=== PATIENT | male | born 1975 | race Caucasian/White ===

== ENCOUNTER 2018-03-28 06:29 | Day surgery (SDC) | payer OTHER ==
[~2018-03-28 06:29] MED LIST: Buffered Lidocaine 1% SYRIN* 1 ML/SYRINGE INTRADERM ONE; Dexamethasone IV* 4 MG/ML 1 ML (4 MG) IV SLOW PU ONE; Famotidine IV* 10 MG/ML 2 ML (20 mg) IV ONE; Lactated Ringers 1000 ML Bag* 1,000 ML IV SCH
[2018-03-28] MEDS ORDERED: Famotidine IV* 10 MG/ML 2 ML (20 mg) ONE (06:50)
[2018-03-28] MEDS ORDERED: Buffered Lidocaine 1% SYRIN* 1 ML/SYRINGE INTRADERM ONE (06:50)
[2018-03-28] MEDS ORDERED: Dexamethasone IV* 4 MG/ML 1 ML (4 MG) ONE (06:50)
[2018-03-28] MEDS ORDERED: ceFOXitin 2 GM IVPREMIX* 2 GM/50 ML BAG ONE (06:50)
[2018-03-28] MEDS ORDERED: Ketorolac INJ* 30 MG/ML 1 ML VIAL ONE ×2 (06:50→07:52)
[2018-03-28] MEDS ORDERED: Midazolam* 1 MG/ML 5 ML VIAL (5 MG) ONE (07:51)
[2018-03-28] MEDS ORDERED: fentaNYL* 50 MCG/ML 5 ML VIAL (250 MCG VIAL) ONE (07:51)
[2018-03-28] MEDS ORDERED: Atracurium* 10 MG/ML 10 ML VIAL ONE (07:51)
[2018-03-28] MEDS ORDERED: Lidocaine 2% PF * 5 ML VIAL ONE (07:52)
[2018-03-28] MEDS ORDERED: Ondansetron INJ* 2 MG/ML VIAL ONE (07:52)
[2018-03-28] MEDS ORDERED: Propofol* 10 MG/ML 20 ML BTL ONE (07:52)
[2018-03-28] MEDS ORDERED: Bupivacaine 0.25% W/EPI* 10 ML SDV ONE (09:05)
[2018-03-28] MEDS ORDERED: fentaNYL* 50 MCG/ML 2 ML VIAL (100 MCG VIAL) ONE ×2 (09:15→09:25)
[2018-03-28] MEDS ORDERED: Glycopyrrolate IV* 0.2 MG/ML 1 ML VIAL ONE (09:17)
[2018-03-28] MEDS ORDERED: Scopolamine 1.5 mg* PATCH TRANSDERM PRN (09:36)
[2018-03-28] MEDS ORDERED: HYDROmorphone INJ1* 1 MG/ML SYRINGE IV PRN (09:36)
[2018-03-28] MEDS ORDERED: oxyCODONE/Acetamin 5/325 MG* TAB PO PRN (09:36)
[2018-03-28] MEDS ORDERED: fentaNYL* 50 MCG/ML 2 ML VIAL (100 MCG VIAL) IV PRN (09:36)
[2018-03-28] MEDS ORDERED: Ondansetron INJ* 2 MG/ML VIAL IV PRN (09:36)
[2018-03-28] MEDS ORDERED: DiMENhydriNATE IV* 50 MG/ML VIAL IV PUSH PRN (09:36)
[2018-03-28] MEDS ORDERED: Naloxone* 0.4 MG/ML 1 ML VIAL IV PRN (09:36)
--- NOTE | 2018-03-28 12:17 | OP ---
CC: Dr. Chappell; [place]; Chilo Suarez DO OPERATIVE REPORT: DATE OF OPERATION: 03/28/18 DATE OF : 79 SURGEON: Dr. Chappell BEHAVIORAL PEDIATRICIAN: None. ANESTHESIOLOGIST: Dr. Peña. ANESTHESIA: General anesthetic, local infiltration. PRE-OP DIAGNOSIS: Benign tumor of cecum. POST-OP DIAGNOSIS: Benign tumor of cecum. OPERATIVE PROCEDURE: Wedge resection of cecum. DESCRIPTION OF PROCEDURE: Patient was supine on the operative table. After adequate general anesthe tic, compression stockings, Juliocesar Hugger warmer, and intravenous antibiotics, the abdomen was prepped with antiseptic, draped in a sterile fashion. Local infiltrative anesthesia was administered. Small umbilical incision was created, blunt port cannula was placed. Insufflation was carried out with ca rbon dioxide. Additional cannulae, 5 mm left lower quadrant, left mid abdomen, and ultimately anothe r 5 mm upper midline, were placed through small stab wounds under direct vision. There were multiple adhesions in the right lower quadrant from the previous appendectomy. These were taken down using s harp dissection until the cecum and terminal ileum were mobilized and the omentum was mobilized off o f it and out of the way. The base of the cecum was lifted upward and a 60 mm govea-load EndoGIA staple r was placed across the base of the cecum just off the edge of the ileocecal valve and 2 firings were utilized to transect a piece of the bowel. This was removed in an EndoCatch bag and then brought t o a side table. The staple line was opened and the tumor was inside and appeared to be removed in it s entirety with an adequate margin. Specimen was then sent in formalin for pathologic evaluation and the operative field was reexamined. Hemostasis was good. Irrigation was carried out. Free fluid wa s suctioned out. Hemostasis again confirmed. The cannulae were removed. Pneumoperitoneum allowed to escape. The umbilical fascia was closed with 0 Vicryl, followed by 5-0 Vicryl for all the skin inci sions, followed by Steri-Strips. He tolerated the procedure well. He was awakened and brought to [facility] in good condition. COMPLICATIONS: There were no complications. DRAINS: No drains. SPECIMEN: Pathologic specimen is wedge resection of the cecum. COUNTS: Sponge and instrument counts correct. ESTIMATED BLOOD LOSS: 30 mL. [id number]/[facility] #: [id number]
[2018-03-28 12:37] VITALS: BP 117/82
== END 2018-03-28 12:45 | disposition home or self-care (01) ==
LOC: OR 06:29
PROVIDERS: ATTEND Surgery
DX: D12.0 Benign neoplasm of cecum (principal); Z87.891 Personal history of nicotine dependence
CPT/HCPCS: 88307; J0694; J1100; J1885; J2250; J2405; J2704; J3010

== ENCOUNTER 2018-07-06 07:55 | Emergency (ER) | payer OTHER ==
[2018-07-06 08:37] VITALS: BP 144/85
--- NOTE | 2018-07-06 08:50 | UC ---
Abdominal Pain Male HPI - HPI Summary HPI Summary: 43 yo male with onset of abd pain yesterday onset fairly acute fever pain worse with movement relief with defecation/urination currently on Augmentin Hx erosive esophagitis Hx diverticulitis Hx appy Hx wedge bx to remove colonic polyp - History of Current Complaint Chief Complaint: UCAbdominalPain Stated Complaint: ABDOMINAL PAIN (HX DIVERTICULITIS) Hx Obtained From: Patient Onset/Duration: Sudden Onset, Lasting Hours Timing: Constant Severity Initially: Moderate Pain Intensity: 5 - 8-9 with ambulation Pain Scale Used: 0-10 Numeric Location: Diffuse, Other - worse lower quadrients Radiates: No Character: Aching, Colicy, Cramping Aggravating Factor(s): Movement Alleviating Factor(s): Other - BM or urination Associated Signs And Symptoms: Positive: Fever, Decreased Appetite Male Torso: 1 - distended - Allergies/Home Medications Allergies/Adverse Reactions: Allergies Allergy/AdvReac Type Severity Reaction Status Date / Time No Known Allergies Allergy Verified 07/06/18 08:37 PMH/Surg Hx/FS Hx/Imm Hx Previously Healthy: Yes GI/ History: Gastroesophageal Reflux, Diverticulitis - Surgical History Surgical History: Yes Surgery Procedure, Year, and Place: APPENDECTOMY SYR 30 YEARS. Colonoscopy with polyp removal - Family History Known Family History: Positive: Hypertension - Social History Alcohol Use: Occasionally Substance Use Type: None Smoking Status (MU): Former Smoker Have You Smoked in the Last Year: No When Did the Patient Quit Smoking/Using Tobacco: 2016 Review of Systems All Other Systems Reviewed And Are Negative: Yes Constitutional: Positive: Fever, Chills Skin: Positive: Negative Eyes: Positive: Negative ENT: Positive: Negative Respiratory: Positive: Negative Cardiovascular: Positive: Negative Gastrointestinal: Positive: Abdominal Pain Genitourinary: Positive: Negative Motor: Positive: Negative Neurovascular: Positive: Negative Musculoskeletal: Positive: Negative Neurological: Positive: Negative Psychological: Positive: Negative Physical Exam Triage Information Reviewed: Yes Appearance: Ill-Appearing Vital Signs: Initial Vital Signs Temp 100.9 F 07/06/18 08:31 Pulse 114 07/06/18 08:31 Resp 16 07/06/18 08:31 BP 144/85 07/06/18 08:31 Pulse Ox 95 07/06/18 08:31 Vital Signs Reviewed: Yes Eyes: Positive: Conjunctiva Clear ENT: Positive: Hearing grossly normal. Negative: Nasal congestion, Nasal drainage, Trismus, Muffled voice, Hoarse voice Neck: Positive: Supple, Nontender Respiratory: Positive: Lungs clear, Normal breath sounds, No respiratory distress, No accessory muscle use Cardiovascular: Positive: RRR, Tachycardia Abdomen Description: Positive: Distended, Guarding. Negative: Nontender - diffusely tender , worse LLQ>SUPRAPUBIC>RLQ>UPPER QRADIENTS, Bruit, CVA Tenderness (R), CVA Tenderness (L), Hernia @, Hepatomegaly, McBurney's Point Tenderness, Peritoneal Signs, Pulsatile Mass, Splenomegaly Bowel Sounds: Positive: Hyperactive - tinkling/high ptiched Musculoskeletal: Positive: ROM Intact, No Edema Neurological: Positive: Alert Psychological Exam: Normal Skin Exam: Normal Abd Pain Male Course/Dx - Course Course Of Treatment: discussed with Teo LOPEZ at [facility] to ER via POV - Differential Dx/Clinical Impression Provider Diagnosis: Diffuse abdominal pain Discharge - Sign-Out/Discharge Documenting (check all that apply): Patient Departure All imaging exams completed and their final reports reviewed: No Studies - Discharge Plan Condition: Stable Disposition: HOME-RECOMMEND TO ED Referrals: [place] NP [Primary Care Provider] - Additional Instructions: I suggest you go directly to the ER for evaluation of your abdominal pain They are expecting you I spoke to Jazzmine Brown at [facility] ER - Billing Disposition and Condition Condition: STABLE Disposition: Home-Recommend to ED
== END 2018-07-06 09:00 | disposition home health service (06) ==
LOC: UCCORT 07:55
DX: R10.32 Left lower quadrant pain (principal); R10.31 Right lower quadrant pain; Z87.891 Personal history of nicotine dependence
CPT/HCPCS: 99212; G0463

== ENCOUNTER 2022-08-23 06:45 | Observation (INO) ==
[2022-08-23 08:13] LABS: ABS Lymphocytes 2.1 10^3/uL (1.0-4.8); ABS Monocytes 0.7 10^3/uL (0.0-1.1); ABS Neutrophils 6.6 10^3/uL (1.5-7.6); ABS Nucleated RBC 0.01 10^3/ul; Eosinophil % 0.5 %; Hematocrit 43.2 % (38-53); Hemoglobin 14.7 g/dL (13.2-16.3); Lymphocyte % 21.7 %; Mean Corpuscular Hemoglobin 29.8 pg (27-33); Mean Corpuscular Hgb Conc 34.2 g/dL (31-36); Mean Corpuscular Volume 87.1 fL (80-97); Mean Platelet Volume 6.9 fL (7.5-11.2); Nucleated Red Blood Cells % 0.1 /100 WBC (0.0-0.4); Platelet Count 315 10^3/uL (150-450); Red Blood Count 4.95 10^6/uL (4.06-5.63); Red Cell Distribution Width 14.9 % (12-17); White Blood Count 9.5 10^3/uL (3.6-10.2)
[2022-08-23 08:20] LABS: INR 1.07 (0.88-1.18)
[2022-08-23 08:30] LABS: Albumin 4.7 g/dL (3.2-5.2); Albumin/Globulin Ratio 1.7 (1-3); C Reactive Protein 12.19 mg/L (<8.01); Calcium 9.8 mg/dL (8.6-10.3); Creatinine, Serum 0.93 mg/dL (0.67-1.17); Globulin 2.7 g/dL (2-4); Potassium 3.7 mmol/L (3.5-5.0); Total Protein 7.4 g/dL (6.4-8.9); eGFR CKD-EPI 103.2 (>60)
[2022-08-23 08:43] LABS: Urine Appearance Clear; Urine Bilirubin Negative (Negative); Urine Blood Negative (Negative); Urine Color Yellow; Urine Glucose Negative (Negative); Urine Ketones Negative (Negative); Urine Nitrite Negative (Negative); Urine Protein 2+(100 mg/dL) (Negative); Urine Specific Gravity 1.014 (1.002-1.030); Urine Urobilinogen Negative (Negative)
[2022-08-23] MEDS ORDERED: Iodixanol (CONTRAST) 320 MG/ML 100 ML SDV IV ONE (08:56)
[2022-08-23 09:15] LABS: Urine Bacteria Absent (Absent); Urine Red Blood Cell Trace(0-2/hpf) (Absent); Urine White Blood Cell Trace(0-5/hpf) (Absent)
[2022-08-23] MEDS ORDERED: Ondansetron 4 mg VIAL 2 MG/ML 2 ml VIAL IV PRN (12:02)
[2022-08-23] MEDS ORDERED: Acetaminophen IV 1 GM/100ML 1,000 MG/100 ML BAG IV PRN (12:06)
[2022-08-23] MEDS ORDERED: HYDROmorphone 0.5 MG/0.5 ML SYRINGE IV SLOW PU PRN (12:49)
[2022-08-23] MEDS ORDERED: Dextrose 50% Syringe 50 ml 25 GM/50 ML SYRINGE IV PUSH PRN (13:54)
[2022-08-23] MEDS: NS 0.9% 1000 ml BAG 1,000 ML IV SCH (20:54)
[2022-08-24] MEDS: NS 0.9% 1000 ml BAG 1,000 ML IV SCH ×2 (03:56→12:07)
[2022-08-24 06:03] LABS: ABS Eosinophils 0.1 10^3/uL (0.0-0.5); ABS Lymphocytes 2.2 10^3/uL (1.0-4.8); ABS Monocytes 0.7 10^3/uL (0.0-1.1); ABS Neutrophils 4.3 10^3/uL (1.5-7.6); ABS Nucleated RBC 0.01 10^3/ul; Eosinophil % 1.1 %; Hematocrit 38.4 % (38-53); Lymphocyte % 30.7 %; Mean Corpuscular Hemoglobin 28.9 pg (27-33); Mean Corpuscular Hgb Conc 33.9 g/dL (31-36); Mean Corpuscular Volume 85.2 fL (80-97); Mean Platelet Volume 7.1 fL (7.5-11.2); Nucleated Red Blood Cells % 0.1 /100 WBC (0.0-0.4); Platelet Count 284 10^3/uL (150-450); Red Blood Count 4.51 10^6/uL (4.06-5.63); Red Cell Distribution Width 14.8 % (12-17); White Blood Count 7.3 10^3/uL (3.6-10.2)
[2022-08-24 06:17] LABS: Calcium 8.6 mg/dL (8.6-10.3); Creatinine, Serum 0.86 mg/dL (0.67-1.17); Potassium 3.5 mmol/L (3.5-5.0); eGFR CKD-EPI 108.8 (>60)
[2022-08-24 13:45] VITALS: BP 129/71
== END 2022-08-24 18:04 | disposition home or self-care (01) ==
LOC: EDHOLD 06:45 → ED 06:45 → EDHOLD 19:56 → SSU 20:07
PROVIDERS: ADMIT Surgery; ATTEND Surgery

== ENCOUNTER 2023-04-02 14:20 | Observation (INO) ==
[2023-04-02 15:11] LABS: ABS Basophils 0.1 10^3/uL (0.0-0.1); ABS Lymphocytes 2.8 10^3/uL (1.0-4.8); ABS Monocytes 0.8 10^3/uL (0.0-1.1); ABS Neutrophils 8.8 10^3/uL (1.5-7.6); ABS Nucleated RBC 0.05 10^3/ul; Eosinophil % 0.3 %; Hematocrit 46.6 % (38-53); Hemoglobin 15.5 g/dL (13.2-16.3); Lymphocyte % 22.2 %; Mean Corpuscular Hemoglobin 28.8 pg (27-33); Mean Corpuscular Hgb Conc 33.2 g/dL (31-36); Mean Corpuscular Volume 86.7 fL (80-97); Nucleated Red Blood Cells % 0.4 %/100WBC (0.0-0.8); Platelet Count 400 10^3/uL (150-450); Red Blood Count 5.38 10^6/uL (4.06-5.63); Red Cell Distribution Width 14.2 % (12-17); White Blood Count 12.5 10^3/uL (3.6-10.2)
[2023-04-02] MEDS: NS 0.9% 1000 ml BAG 2,000 ML IV ONE (15:30)
[2023-04-02] MEDS: Morphine 10 MG/ML VIAL (1 ml) IV ONE (15:31)
[2023-04-02] MEDS: Ondansetron 4 mg VIAL 2 MG/ML 2 ml VIAL IV ONE (15:31)
[2023-04-02 16:24] LABS: Albumin 5.3 g/dL (3.2-5.2); Albumin/Globulin Ratio 1.8 (1-3); C Reactive Protein 6.05 mg/L (<8.01); Creatinine, Serum 1.03 mg/dL (0.67-1.17); Globulin 2.9 g/dL (2-4); Potassium 4.3 mmol/L (3.5-5.0); Total Bilirubin 1.5 mg/dL (0.2-1.0); Total Protein 8.2 g/dL (6.4-8.9); eGFR CKD-EPI 90.7 (>60)
[2023-04-02] MEDS: Iodixanol (CONTRAST) 320 MG/ML 100 ML SDV IV ONE (16:59)
[2023-04-02] MEDS: Morphine 4 MG/ML VIAL (1 ml) IV PRN (19:15)
[2023-04-02] MEDS ORDERED: Ondansetron 4 mg VIAL 2 MG/ML 2 ml VIAL IV PRN (20:31)
[2023-04-02] MEDS: D5W 1/2 NS KCl 20 meq 1000 ml 1,000 ML IV SCH (21:02)
[2023-04-02] MEDS: Pantoprazole VIAL 40 MG VIAL IV SCH (23:34)
[2023-04-02] MEDS: Diatrizoate Meg/Sod(CONTRAST) 30 ML ORAL.SOLN ONE (23:56)
[2023-04-03 05:57] LABS: ABS Eosinophils 0.1 10^3/uL (0.0-0.5); ABS Lymphocytes 1.2 10^3/uL (1.0-4.8); ABS Monocytes 0.7 10^3/uL (0.0-1.1); ABS Neutrophils 8.2 10^3/uL (1.5-7.6); ABS Nucleated RBC 0.01 10^3/ul; Eosinophil % 0.6 %; Hematocrit 40.5 % (38-53); Hemoglobin 13.5 g/dL (13.2-16.3); Lymphocyte % 11.8 %; Mean Corpuscular Hemoglobin 28.8 pg (27-33); Mean Corpuscular Hgb Conc 33.2 g/dL (31-36); Mean Corpuscular Volume 86.6 fL (80-97); Platelet Count 314 10^3/uL (150-450); Red Blood Count 4.68 10^6/uL (4.06-5.63); Red Cell Distribution Width 14.7 % (12-17); White Blood Count 10.2 10^3/uL (3.6-10.2)
[2023-04-03 06:28] LABS: Anion Gap 12 mmol/L (2-16); Blood Urea Nitrogen 17 mg/dL (6-24); CO2 Carbon Dioxide 29 mmol/L (22-32); Calcium 10.2 mg/dL (8.6-10.3); Chloride 96 mmol/L (101-111); Glucose 166 mg/dL (70-100); Sodium 137 mmol/L (135-145); eGFR CKD-EPI 106.7 (>60)
[2023-04-03] MEDS: Lactated Ringers 1000 ml BAG 1,000 ML IV SCH (11:54)
[2023-04-03] MEDS: Acetaminophen IV 1 GM/100ML 1,000 MG/100 ML BAG IV PRN (11:54)
[2023-04-04 11:33] VITALS: BP 140/86
== END 2023-04-04 14:30 | disposition home or self-care (01) ==
LOC: ED 14:20 → EDHOLD 14:20 → MED 04-03 12:10
PROVIDERS: ADMIT Surgery Surgical Critical Care; ATTEND Surgery Surgical Critical Care

== ENCOUNTER 2023-06-20 06:01 | Inpatient (IN) ==
[~2023-06-20 06:01] MED LIST changes: -Buffered Lidocaine 1% SYRIN* 1 ML/SYRINGE INTRADERM ONE; -Dexamethasone IV* 4 MG/ML 1 ML (4 MG) IV SLOW PU ONE; -Famotidine IV* 10 MG/ML 2 ML (20 mg) IV ONE; -Lactated Ringers 1000 ML Bag* 1,000 ML IV SCH; +Metoclopramide 5 MG/ML VIAL (10 mg) IV PRN; +NS 0.45% 1000 ml BAG 1,000 ML IV SCH; +Naloxone 0.4 mg VIAL 0.4 mg/ml 1 ml VIAL IV PRN; +Ondansetron 4 mg VIAL 2 MG/ML 2 ml VIAL IV PRN
[2023-06-20] MEDS ORDERED: ceFAZolin 2 GM PREMIX 2 GM/50 ML BAG ONE (06:27)
[2023-06-20] MEDS ORDERED: Sevoflurane BOTTLE ONE (06:37)
[2023-06-20] MEDS ORDERED: Propofol 10 MG/ML 20 ML BTL ONE (06:39)
[2023-06-20] MEDS ORDERED: Lidocaine 2% PF 5 ML VIAL ONE (06:40)
[2023-06-20] MEDS ORDERED: Rocuronium 50 mg VIAL 10 mg/ml 5 ml VIAL (50 mg) ONE ×4 (06:41→11:51)
[2023-06-20] MEDS ORDERED: Phenylephrine IV 10 MG/ML 1 ml VIAL ONE (06:43)
[2023-06-20] MEDS ORDERED: Ondansetron 4 mg VIAL 2 MG/ML 2 ml VIAL ONE ×2 (06:45→14:09)
[2023-06-20] MEDS ORDERED: Dexamethasone IV 4 MG/ML VIAL 1 ml VIAL ONE ×3 (06:45→14:09)
[2023-06-20] MEDS ORDERED: fentaNYL 100 mcg/2 ml 50 MCG/ML VIAL ONE ×3 (06:47→15:15)
[2023-06-20] MEDS ORDERED: Midazolam 2 mg/2 ml VIAL 1 mg/ml 2 ml VIAL (2 mg) ONE (06:47)
[2023-06-20 06:48] LABS: Rapid COVID-19 Molecular Undetected (Undetected)
[2023-06-20] MEDS ORDERED: Famotidine IV 10 MG/ML 2 ml VIAL (20 mg) ONE (07:00)
[2023-06-20] MEDS: Buffered Lidocaine 1% SYRIN 1 ml INTRADERM ONE (07:18)
[2023-06-20] MEDS: Famotidine IV 10 MG/ML 2 ml VIAL (20 mg) IV ONE (07:19)
[2023-06-20] MEDS ORDERED: Bupivacaine 0.25% EPI 200,000 30 ML SDV ONE (07:22)
[2023-06-20] MEDS ORDERED: Lidocaine 4 MG/ML IV PREMIX 2,000 MG/500 ML BAG IV ONE (07:23)
[2023-06-20] MEDS ORDERED: KETAMINE HCL 10 MG/ML 20 ml VIAL (200 MG) ONE ×3 (07:30→13:28)
[2023-06-20] MEDS ORDERED: ROPIVACAINE 5 MG/ML 30 ML BTL (0.5%) ONE (07:35)
[2023-06-20] MEDS ORDERED: HYDROmorphone 0.5 MG/0.5 ML SYRINGE ONE ×3 (09:24→12:08)
[2023-06-20] MEDS ORDERED: Acetaminophen IV 1 GM/100ML 1,000 MG/100 ML BAG IV ONE (14:02)
[2023-06-20] MEDS ORDERED: ceFAZolin 1 GM ADVAN 1 GM ADDV.VIAL IVPB ONE (14:04)
[2023-06-20] MEDS ORDERED: Labetalol IV 5 MG/ML 20 ml VIAL ONE (14:44)
[2023-06-20] MEDS ORDERED: Scopolamine 1 mg/72hr PATCH ONE (15:13)
[2023-06-20] MEDS: Scopolamine 1 mg/72hr PATCH TRANSDERM ONE (15:14)
[2023-06-20] MEDS: Lactated Ringers 1000 ml BAG 1,000 ML IV SCH ×2 (15:14→18:25)
[2023-06-20] MEDS: fentaNYL 100 mcg/2 ml 50 MCG/ML VIAL IV PRN (15:16)
[2023-06-20] MEDS ORDERED: Naloxone 0.4 mg VIAL 0.4 mg/ml 1 ml VIAL IV PUSH PRN (15:32)
[2023-06-20] MEDS ORDERED: Dextrose 50% Syringe 50 ml 25 GM/50 ML SYRINGE IV PUSH PRN (15:35)
[2023-06-20] MEDS ORDERED: Ondansetron 4 mg VIAL 2 MG/ML 2 ml VIAL IV PRN (15:35)
[2023-06-20] MEDS ORDERED: Levalbuterol 0.63MG/3ML NEB UNIT OF USE INH ONE (15:44)
[2023-06-20] MEDS ORDERED: Morphine PCA ADULT 5 MG/ML 30 ML PCA SCH (15:45)
[2023-06-20] MEDS: Levalbuterol 0.63MG/3ML NEB UNIT OF USE INH PRN (15:47)
[2023-06-20] MEDS: Morphine PCA ADULT 5 MG/ML 30 ML PCA SCH (18:25)
[2023-06-20] MEDS: Famotidine IV 10 MG/ML 2 ml VIAL (20 mg) IV SLOW PU SCH (20:12)
[2023-06-20] MEDS: ceFAZolin VIAL 2 GM in NS 0.9% 100 ml BAG 100 ML IVPB SCH (20:50)
[2023-06-20] MEDS: Heparin 5000 UNITS/ML 1 mL VIAL SUBCUT SCH (21:15)
[2023-06-21 05:31] LABS: ABS Lymphocytes 1.5 10^3/uL (1.0-4.8); ABS Monocytes 1.2 10^3/uL (0.0-1.1); ABS Neutrophils 6.5 10^3/uL (1.5-7.6); ABS Nucleated RBC 0.01 10^3/ul; Hematocrit 35.5 % (38-53); Hemoglobin 11.9 g/dL (13.2-16.3); Lymphocyte % 15.9 %; Mean Corpuscular Hgb Conc 33.6 g/dL (31-36); Mean Corpuscular Volume 86.5 fL (80-97); Mean Platelet Volume 6.9 fL (7.5-11.2); Nucleated Red Blood Cells % 0.1 %/100WBC (0.0-0.8); Platelet Count 251 10^3/uL (150-450); Red Blood Count 4.11 10^6/uL (4.06-5.63); Red Cell Distribution Width 15.2 % (12-17); White Blood Count 9.2 10^3/uL (3.6-10.2)
[2023-06-21 06:07] LABS: Calcium 8.4 mg/dL (8.6-10.3); Creatinine, Serum 0.94 mg/dL (0.67-1.17); Potassium 3.8 mmol/L (3.5-5.0); eGFR CKD-EPI 101.2 (>60)
[2023-06-21] MEDS: HYDROmorphone 0.5 MG/0.5 ML SYRINGE IV SLOW PU PRN (11:16)
[2023-06-21] MEDS: Acetaminophen IV 1 GM/100ML 1,000 MG/100 ML BAG IV PRN (11:16)
[2023-06-22 00:24] LABS: ABS Lymphocytes 1.8 10^3/uL (1.0-4.8); ABS Monocytes 1.1 10^3/uL (0.0-1.1); ABS Neutrophils 4.6 10^3/uL (1.5-7.6); ABS Nucleated RBC 0.01 10^3/ul; Eosinophil % 0.2 %; Hemoglobin 8.8 g/dL (13.2-16.3); Lymphocyte % 23.6 %; Mean Corpuscular Hemoglobin 29.1 pg (27-33); Mean Corpuscular Hgb Conc 33.7 g/dL (31-36); Mean Corpuscular Volume 86.4 fL (80-97); Mean Platelet Volume 7.2 fL (7.5-11.2); Nucleated Red Blood Cells % 0.1 %/100WBC (0.0-0.8); Platelet Count 272 10^3/uL (150-450); Red Blood Count 3.01 10^6/uL (4.06-5.63); Red Cell Distribution Width 15.2 % (12-17); White Blood Count 7.5 10^3/uL (3.6-10.2)
[2023-06-22 00:58] LABS: Creatinine, Serum 0.86 mg/dL (0.67-1.17); Potassium 3.5 mmol/L (3.5-5.0); eGFR CKD-EPI 108.1 (>60)
[2023-06-22] MEDS: cefTRIAXone 1 gm/50 mL D5W 1 GM/50 ML BAG IV SCH (03:16)
[2023-06-22 08:12] LABS: ABS Lymphocytes 1.9 10^3/uL (1.0-4.8); ABS Neutrophils 4.3 10^3/uL (1.5-7.6); ABS Nucleated RBC 0.01 10^3/ul; Eosinophil % 0.5 %; Hematocrit 26.4 % (38-53); Mean Corpuscular Hemoglobin 29.4 pg (27-33); Mean Corpuscular Volume 86.5 fL (80-97); Mean Platelet Volume 7.1 fL (7.5-11.2); Nucleated Red Blood Cells % 0.1 %/100WBC (0.0-0.8); Platelet Count 292 10^3/uL (150-450); Red Blood Count 3.05 10^6/uL (4.06-5.63); Red Cell Distribution Width 15.1 % (12-17); White Blood Count 7.2 10^3/uL (3.6-10.2)
[2023-06-22 08:30] LABS: Calcium 8.3 mg/dL (8.6-10.3); Creatinine, Serum 0.89 mg/dL (0.67-1.17); Potassium 3.7 mmol/L (3.5-5.0)
[2023-06-22] MEDS: Metformin ER 500 mg TAB (NF) PO SCH (11:19)
[2023-06-22 15:54] LABS: Urine Appearance Clear; Urine Bilirubin Negative (Negative); Urine Blood Negative (Negative); Urine Color Light-Yellow; Urine Glucose 3+ (>=300 mg/dL) (Negative); Urine Ketones 1+ (Negative); Urine Nitrite Negative (Negative); Urine Protein Trace (Negative); Urine Specific Gravity 1.015 (1.002-1.030); Urine Urobilinogen Negative (Negative); Urine pH 6.5 (5.0-8.0)
[2023-06-23 05:48] LABS: ABS Eosinophils 0.1 10^3/uL (0.0-0.5); ABS Monocytes 0.9 10^3/uL (0.0-1.1); ABS Neutrophils 3.8 10^3/uL (1.5-7.6); ABS Nucleated RBC 0.01 10^3/ul; Eosinophil % 1.3 %; Hematocrit 22.2 % (38-53); Hemoglobin 7.5 g/dL (13.2-16.3); Lymphocyte % 28.8 %; Mean Corpuscular Hemoglobin 29.4 pg (27-33); Mean Corpuscular Hgb Conc 33.9 g/dL (31-36); Mean Corpuscular Volume 86.7 fL (80-97); Mean Platelet Volume 7.1 fL (7.5-11.2); Nucleated Red Blood Cells % 0.1 %/100WBC (0.0-0.8); Platelet Count 266 10^3/uL (150-450); Red Blood Count 2.55 10^6/uL (4.06-5.63); Red Cell Distribution Width 14.9 % (12-17); White Blood Count 6.8 10^3/uL (3.6-10.2)
[2023-06-23 06:03] LABS: Albumin 3.3 g/dL (3.2-5.2); Albumin/Globulin Ratio 1.6 (1-3); Calcium 8.3 mg/dL (8.6-10.3); Creatinine, Serum 0.8 mg/dL (0.67-1.17); Globulin 2.1 g/dL (2-4); Potassium 3.7 mmol/L (3.5-5.0); Total Bilirubin 1.1 mg/dL (0.2-1.0); Total Protein 5.4 g/dL (6.4-8.9); eGFR CKD-EPI 110.5 (>60)
[2023-06-24 05:20] VITALS: BP 117/61
[2023-06-24 06:59] LABS: Hematocrit 23.1 % (38-53); Hemoglobin 7.9 g/dL (13.2-16.3); Mean Corpuscular Hemoglobin 29.5 pg (27-33); Mean Corpuscular Hgb Conc 34.2 g/dL (31-36); Mean Corpuscular Volume 86.3 fL (80-97); Mean Platelet Volume 7.1 fL (7.5-11.2); Platelet Count 309 10^3/uL (150-450); Red Blood Count 2.68 10^6/uL (4.06-5.63); Red Cell Distribution Width 14.8 % (12-17); White Blood Count 6.8 10^3/uL (3.6-10.2)
== END 2023-06-24 11:40 | disposition home or self-care (01) | DRG 227 ==
LOC: AA 06:01 → SSU 17:11
PROVIDERS: ADMIT Surgery; ATTEND Surgery